=== PATIENT | female | born 2000 | race Caucasian/White ===

== ENCOUNTER 2022-05-25 07:54 | Emergency (ER) | payer OTHER ==
[~2022-05-25] VITALS: Ht 170.2 cm; Wt 59.0 kg
[2022-05-25 10:57] VITALS: BP 118/90
[2022-05-25] MEDS ORDERED: TETRACAINE HCL 0.5% OPTH(EYE) SOLN 4ML RIGHTEYE ONE (11:30)
[2022-05-25] MEDS ORDERED: FLUORESCEIN SOD OPTH TEST STRIP RIGHTEYE ONE (11:30)
[2022-05-25] MEDS ORDERED: POLYSOL15 OP (11:43)
== END 2022-05-25 13:04 | disposition home or self-care (01) ==
LOC: ER 07:54
DX: H10.9 Unspecified conjunctivitis (principal); F17.210 Nicotine dependence, cigarettes, uncomplicated; Z79.899 Other long term (current) drug therapy